=== PATIENT | female | born 1950 | race Caucasian/White ===

== ENCOUNTER 2024-10-15 05:52 | Day surgery (SDC) | payer MEDICARE, BC ==
[2024-10-09 10:28] VITALS: BP 151/66
[2024-10-09 10:41] VITALS: BP 151/66
[~2024-10-15] VITALS: Ht 152.4 cm; Wt 55.4 kg
[~2024-10-15 05:52] MED LIST: BRIMONIDINE TART5 ML OPTH; CIPRO500 MG PO; CO Q-10100 MG PO; CYCLOBENZAPRINE10 MG PO; ENZYME DIGEST1 EACH PO; KLONOPIN1 MG PO; LACTATED RINGER'S 1,000 ML IV SCH; LATANOPROST2.5 ML OPTH; LISINOPRIL20 MG PO; MELOXICAM15 MG PO; METRONIDAZOLE500 MG PO; PANTOPRAZOLE SO20 MG PO; ROSUVASTATIN CA10 MG PO; TYLENOL325 MG PO; VITAMIN D325 MC2 PO
[2024-10-15 06:07] VITALS: BP 134/66
[2024-10-15] MEDS ORDERED: LOSARTAN POTASS25 MG PO (06:10)
[2024-10-15] MEDS ORDERED: IBLOOD GLUCOSE TEST STRIP 1 EA TEST VI PRN (07:00)
[2024-10-15] MEDS ORDERED: LIDOCAINE HCL 1% 5 ML SDV INJ ONE (07:00)
[2024-10-15] MEDS ORDERED: propofoL 200 MG/20 ML VIAL ONE (08:19)
--- NOTE | 2024-10-15 08:49 | NUR ---
10/15/24 0849 Sneha Elder PATIENT IS AWAKE. TALKING WITH ME. OXYGEN IS DISCONTINUED. HEAD OF BED IS ELEVATED. DISCHARGE INSTRCUTIONS ARE REVIEWED AND PATIENT VERBALIZES UNDERSTANDING.
[2024-10-15 08:58] VITALS: BP 141/77
--- NOTE | 2024-10-15 19:06 | EKG ---
[facility] [address] [facility] [place] [address] Signed Normal sinus rhythm Possible Left atrial enlargement Left axis deviation Pulmonary disease pattern Abnormal ECG Confirmed by Osmani Ornelas DO ([id number]) on 10/15/2024 7:06:28 PM Electronically Signed By: OSMANI ORNELAS DO 10/15/241905 PATIENT NAME: NELI JULIEN Electrocardiogram DATE OF : 50 PHYSICIAN: OSMANI ORNELAS DO REPORT #: [id number] REPORT IS CONFIDENTIAL AND NOT TO BE RELEASED WITHOUT AUTHORIZATION
--- NOTE | 2024-10-16 11:29 | OR ---
[facility] [address] [place] [address] Signed DATE OF OPERATION: 10/15/2024 SURGEON: Anil Hagen DO PREOPERATIVE DIAGNOSIS: Colonoscopy for colon cancer screening. POSTOPERATIVE DIAGNOSES: Colonoscopy for colon cancer screening with diverticulosis and nonspecific colitis. PROCEDURE PERFORMED: Pancolonoscopy. ANESTHESIA: IV sedation. ESTIMATED BLOOD LOSS: None. DRAINS: None. COMPLICATIONS: None. DESCRIPTION OF PROCEDURE: The patient was brought to the GI lab, placed in the supine position. After induction of IV sedation, she was placed in left lateral position. Digital rectal exam was then performed and found to have no masses present. The Olympus videocolonoscope was introduced into the rectum, rectosigmoid, sigmoid colon, descending colon, transverse colon, ascending colon under direct visualization down to the cecum. The colon was fully insufflated and general exploration was carried out. The scope was withdrawn. Cecum and ascending colon were without lesions, ulcerations, intrinsic or extrinsic masses. Some nonspecific colitis noticed in area of transverse colon essentially unremarkable. No intrinsic or extrinsic masses. No lesions, ulceration except for some mild nonspecific colitis showed going back to the splenic flexure into the descending colon was essentially unremarkable. No intrinsic or extrinsic masses were noted. The scope was brought back into the sigmoid colon and some scattered diverticula present, but no evidence of diverticulitis noted. Scope was then brought back into the rectosigmoid essentially unremarkable. The colon was decompressed. Scope was withdrawn Electronically Signed By: ANIL HAGEN DO 10/16/24 1129 PATIENT NAME: NELI JULIEN OPERATIVE REPORT DATE OF : 50 REPORT #: [id number] PHYSICIAN: ANIL HAGEN DO PCP: LLOYD TORRES MD REPORT IS CONFIDENTIAL AND NOT TO BE RELEASED WITHOUT AUTHORIZATION [address] [place], [place] [address] Signed in its entirety. The patient tolerated the procedure well and went to recovery room in satisfactory condition. DO SONIA Polanco/CYNDEE /[id number] Copies: ~ Electronically Signed By: ANIL HAGEN DO 10/16/24 1129 PATIENT NAME: NELI JULIEN OPERATIVE REPORT DATE OF : 50 REPORT #: [id number] PHYSICIAN: ANIL HAGEN DO PCP: LLOYD TORRES MD REPORT IS CONFIDENTIAL AND NOT TO BE RELEASED WITHOUT AUTHORIZATION
== END 2024-10-15 09:05 | disposition home or self-care (01) ==
LOC: DS 05:52
PROVIDERS: ATTEND Surgery
PROC: 0DJD8ZZ Inspection of Lower Intestinal Tract, Via Natural or Artificial Opening Endoscopic (ICD-10-PCS; principal; 2024-10-15 07:30)
DX: Z12.11 Encounter for screening for malignant neoplasm of colon (principal); K57.30 Diverticulosis of large intestine without perforation or abscess without bleeding; Z88.2 Allergy status to sulfonamides; Z88.5 Allergy status to narcotic agent; Z88.0 Allergy status to penicillin; Z88.8 Allergy status to other drugs, medicaments and biological substances; K58.9 Irritable bowel syndrome, unspecified
CPT/HCPCS: 00811; 93005; 93010; J2704; J7121